=== PATIENT | male | born 1965 | race Caucasian/White ===

== ENCOUNTER 2023-04-07 19:15 | Outpatient (CLI) | payer BC, SELFPAY ==
--- NOTE | 2023-04-07 19:45 | MR_ITS ---
[facility] [address] [facility] [address] Phone:?[phone] Fax:?[phone] Referring Physician Information: William Veloz M.D. [address] [place] [address] Phone:?[phone] Fax:?[phone] Patient:Davina Levine D.O.B:?1965 Sex:?Male Phone:?[phone] [facility] MRN:?[id number] Exam Date:?04/07/2023 EXAM: MRI EXAMINATION OF THE RIGHT KNEE CLINICAL INFORMATION: Right knee pain. Injury. Evaluate ACL and medial meniscus tear. No history of surgery to this area. TECHNICAL INFORMATION: Coronal PD and STIR. Axial PD and T2 fat saturation. Sagittal and coronal PD and PD fat saturation images acquired. No prior studies for comparison. INTERPRETATION: Bones: There is a 5 mm subchondral fracture with minimal irregularity of the subchondral bone involving the weightbearing surface of the medial tibial plateau. Moderate to marked surrounding bone marrow edema signal. Marked osseous spurring off the posterior lateral aspect of the medial tibial plateau. No other abnormal bone marrow edema pattern is identified. Ligaments and tendons: The medial collateral ligament is intact, without acute sprain or tear. The iliotibial band, fibular collateral ligament, biceps femoris tendon and popliteus tendon all are intact. The anterior cruciate ligament is intact without acute sprain or tear. The posterior cruciate ligament is intact. Extensor Mechanism: The patellar and quadriceps tendons are intact. The medial and lateral retinacula are intact. Knee Joint: There is a moderately large knee joint effusion. There is a small popliteal cyst. Abnormal moderate to marked fluid and edema signal extending inferior from this cyst in keeping with cyst leakage. There is no discrete loose body seen within the joint. Medial Compartment: Series 6 images 19 and 20 as well as series 7 image 23 demonstrate a full-thickness radial tear involving the posterior horn medial meniscus situated 7 mm from the level of the posterior root insertion. Intrasubstance signal continues from this level into the body. No displaced flap fragment or parameniscal cyst. There is a rate IV appearance of chondromalacia along the central surface of the medial tibial plateau. Adjacent grade III chondromalacia involves the femoral condyle. Lateral Compartment: There is no evidence for discrete lateral meniscal tear. No displaced flap fragment or parameniscal cyst. There is a grade 2 appearance of chondromalacia involving the mid to posterior central weightbearing surface of the lateral femoral condyle. No other significant changes of chondromalacia. Patellofemoral articulation: There are grade 3-4 changes of chondromalacia along the central midline patella and directly adjacent portions of the medial and lateral facets. No other significant chondromalacia. CONCLUSION: 1. There is a full-thickness radial tear involving the far posterior horn medial meniscus, situated 7 mm from the posterior root insertion. 2. There is a small subchondral fracture with minimal irregularity of the subchondral bone involving the weightbearing surface of the medial tibial plateau. Moderate to marked bone marrow edema signal. 3. 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 4. No lateral meniscal tear. Grade II chondromalacia involves the and lateral femoral condyle. 5. Grade III to IV chondromalacia along the central patella. 6. There is a moderately large knee joint effusion. A small popliteal cyst demonstrates moderate to marked leakage. KES Electronically signed on 04/10/2023 1:11:00 PM by Isael Winters M.D.
== END 2023-04-07 19:16 | disposition home or self-care (01) ==
LOC: MRI 19:16
PROVIDERS: PCP Family Medicine; Visit Provider Orthopaedic Surgery
DX: M25.561 Pain in right knee (principal); S83.241A Other tear of medial meniscus, current injury, right knee, initial encounter; S83.511A Sprain of anterior cruciate ligament of right knee, initial encounter; M94.261 Chondromalacia, right knee; M22.41 Chondromalacia patellae, right knee; M25.461 Effusion, right knee
CPT/HCPCS: 73721

== ENCOUNTER 2023-06-03 06:59 | Day surgery (SDC) | payer BC, SELFPAY ==
[2023-06-03] VITALS (15 sets, daily range): BP systolic 97–130; BP diastolic 62–101; PULSE 49–66; RESP 12–16; TEMP 36.1–36.6; O2SAT 94–97; BMI 28.9
--- OUTSIDE RECORDS SUMMARY | 2023-06-03 07:01 | XMS_ITS | Clinical Summary ---
Author Name Unknown Organization [facility] Address [place], [place] [address] Care Team Providers Care Radial Router Operator Name Role Phone Jay Perez MD Primary Care Provider Allergies No known active allergies Medications Medication Sig Dispensed Refills Start Date End Date Status sildenafil citrate (VIAGRA) 100 mg tabletIndications :ED (erectile dysfunction) of non-organic origin Take 1 Tablet (100 mg) by mouth once daily if needed for Erectile Dysfunction. Take 30min to 4 hours before sexual activity. Max 100mg/24hr. 10 Tablet 11 05/18/2021 Active tadalafiL (Cialis) 20 mg tabletIndications :Incomplete bladder emptying Take 1 Tablet (20 mg) by mouth once daily. Take 30 minutes before sexual activity. 30 Tablet 1 12/13/2021 Active ibuprofen (ADVIL; MOTRIN) 600 mg tabletIndications :Medial knee pain, right Take 1 Tablet (600 mg) by mouth three times daily with meals. Maximum of 3200 mg in 24 hours. 90 Tablet 0 03/03/2023 Active polyethylene glycol-electrolyt e (GOLYTELY) 236-22.74-6.74 -5.86 gram suspensionIndicat ions:Screen for colon cancer Take 4,000 mL by mouth one time for 1 dose. 4000 mL 0 08/27/2023 08/27/2023 Active tamsulosin (Flomax) 0.4 mg capsuleIndication s:Incomplete bladder emptying Take 1 Capsule (0.4 mg) by mouth at bedtime. 90 Capsule 3 06/02/2023 Active tamsulosin (Flomax) 0.4 mg capsuleIndication s:Incomplete bladder emptying Take 1 Capsule (0.4 mg) by mouth at bedtime. 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 Elevated PSA 06/02/2023 Encounters Date Type Department Care Team Description 06/02/2023 1:40 PM MOUSE BREEDER Office Visit [address] [place] [address] Isaac Myles MD Consult (PSA) 06/02/2023 Travel 05/20/2023 10:10 AM MOUSE BREEDER Preop Visit [address] [place] [address] Jay Perez MD Pre-Op Exam (06/03/2023 right knee) 05/20/[address] [place] [address] Jay Peerz MD Results 05/20/2023 Orders Only [address] [place] [address] Jay Perez MD 1 scan: (1-Ord) 05/20/2023 05/20/2023 Travel 04/08/[address] [place] [address] Jay Perez MD Results 04/07/2023 9:50 AM MOUSE BREEDER Office Visit [address] [place] [address] Jay Perez MD Physical 04/07/2023 Orders Only [facility] Scanner 1 scan: (1-Ord) [place], KNEE RT WO CON, 04/07/2023 04/07/[address] [place] [address] Curto, MD Silvio Aranda 04/07/2023 Travel 03/03/2023 4:20 PM MOUSE BREEDER Office Visit [facility] [address] [place] [address] Flakita Bradford, Knee Pain/problem (right knee- yesterday) 03/03/2023 Travel from Last 3 Months Immunizations Name Administration Dates Next Due COVID-19 vaccine ([employer]-Bio NTech 30mcg/0.3mL) PFHERBIE 09/13/2020,08/23/2020 Influenza Virus, Unspecified 02/11/2011,05/30/19 07 Influenza, IIV3 (Age >=3 years) 04/22/2012,01/05,02/25/2008 Influenza, IIV4 02/16/2020 Tdap 02/16/2020,09/24/2005 Family History Relation Name Status Comments Son 1 Alive Son 2 Alive Social History Tobacco Use Types Packs/Day Years Used Date Smoking Tobacco: Never Smokeless Tobacco: Current Chew Tobacco Cessation:Counseling Given: Yes Alcohol Use Standard Drinks/Week Comments Yes 0 (1 standard drink = 0.6 oz pur e alcohol) PHQ-2 Answer Date Recorded PHQ-2 TOTAL SCORE 0 07/24/2021 Social Connections Answer Date Recorded Frequency of Communication with Friends and Fami ly Not on file 04/21/2021 Financial Resource Strain Answer Date R ecorded Difficulty of Paying Living Expenses Not on file 04/21/2021 Difficulty of Paying Living Expenses Not on file 04/21/2021 Sex and Gender Information Value Date Recorded Sex Assigned at Not on file Gender Identity Not on file Sexual Orientation Not on file Obstetrics History Last Filed Vital Signs Vital Sign Reading Time Taken Comments Blood Pressure 134/82 06/02/2023 1:44 PM MOUSE BREEDER Pulse 80 06/02/2023 1:44 PM MOUSE BREEDER Temperature 36.9 ??C (98.5 ??F) 05/20/2023 1 0:18 AM MOUSE BREEDER Respiratory Rate 14 08/06/2021 1:10 PM CDT Oxygen Saturation 98% 06/02/2023 1:44 PM MOUSE BREEDER Inhaled Oxygen Concentration - - Weight 95.6 kg (210 lb 11.2 oz) 06/02/2023 1:44 PM MOUSE BREEDER Height 182 cm (5' 11.65) 05/20/2023 10 :18 AM MOUSE BREEDER Body Mass Index 28.85 05/20/2023 10:18 AM MOUSE BREEDER Plan of Treatment Upcoming Encounters Date Type Department Care Team (Late st Contact Info) Description 09/17/2023 7:30 AM CDT Hospital Encounter [facility] [address] [place] [address] Getachew Sesay MD [address] [place] [address] 09/17/2023 7:30 AM CDT - 09/17/2023 8:20 AM CDT Surgery [facility] [address] [place] [address] Getachew Sesay MD [address] [place] [address] COLONOSCOPY Scheduled Procedures Name Priority Associated Diagnoses Date/Ti me COLONOSCOPY Screen for colon cancer 09/17/2023 7:30 AM CDT Health Maintenance Due Date Last Done Comments HIV for age 15-65 1980 Hepatitis C screening for age 18-79 09/10/1983 Colonoscopy through age 75 2010 Zoster (shingles) series for age 50+ (1 of 2) 09/10/2015 Depression screening for age 12+ 07/27/2022 07/27/2021, 07/24/2021, 07/02/2021, Additional history exists COVID-19 vaccine series ( season) 2022 09/13/2020, 08/23/2020 Influenza for age 50-64 12/20/2022 02/16/20 20, 04/22/2012, 02/11/2011, Additional history exists BMI (ht and wt on same day) for age 18+ 05/20/2024 05/20/2023, 04/07/2023, 07/24/2021, Additional history exists Lipids for age 45-75 04/07/2028 04/07/2023, 02/16/20 20 Tetanus booster 02/15/2030 02/16/2020, 09/24/2005 Tdap Completed 02/16/2020, 09/24/2005 Pneumococcal series for age 6-64 Aged Out No longer eligible based on patient's age to complete this topic Medical Devices Implanted Type Area Senior Finance Manager Device Identifier Shelf Expiration Date Model / Serial / Lot Mesh Inguinal Lt 3x5in 3-D Max - [id number] Implanted:Qty: 1 on 07/25/2021 by Clovis Goncalves DO at [facility] Left: Inguinal [employer] 01/17/2024 [id number] / / [id number] Procedures Procedure Name Priority Date/Time Associated Diagnosis Comments CBC WITH AUTO DIFFERENTIAL Routine 05/20/2023 10:55 AM MOUSE BREEDER Preop examination Chronic pain of right knee BASIC METABOLIC PANEL Routine 05/20/2023 10:55 AM MOUSE BREEDER Preop examination Chronic pain of right knee CBC WITH AUTO DIFFERENTIAL Routine 05/20/2023 10:55 AM MOUSE BREEDER Preop examination Chronic pain of right knee EKG 12 LEAD Routine 05/20/2023 12:00 AM MOUSE BREEDER Preop examination Chronic pain of right knee BASIC METABOLIC PANEL Routine 04/07/2023 10:30 AM MOUSE BREEDER Well adult exam HEMOGLOBIN A1C SCREENING Routine 04/07/2023 10:30 AM MOUSE BREEDER Well adult exam LIPID PANEL W REFLEX MEASURED LDL Routine 04/07/2023 10:30 AM MOUSE BREEDER Well adult exam PSA TOTAL SCREEN Routine 04/07/2023 10:3 0 AM MOUSE BREEDER Screening for prostate cancer SCAN-MRI INTERPRETATION 04/07/20 12:00 AM MOUSE BREEDER from Last 3 Months Results * CBC WITH AUTO DIFFERENTIAL (05/20/2023 10:55 AM MOUSE BREEDER) WHITE BLOOD COUNT 7.1 4.5 - 11.0 thou/cu mm 05/20/2023 11:15 AM MOUSE BREEDER [facility] RED BLOOD COUNT 5.62 4.30 - 5.90 mil/cu mm 05/20/2023 11:15 AM [facility] HEMOGLOBIN 16.4 13.5 - 17.5 g/dL 05/20/2023 11:15 AM [facility] HEMATOCRIT 48.8 37.0 - 53.0 % 05/20/2023 11:15 AM [facility] MCV 87 80 - 100 fL 05/20/2023 11:15 AM [facility] MCH 29.2 26.0 - 34.0 pg 05/20/2023 11:15 AM [facility] MCHC 33.6 32.0 - 36.0 g/dL 05/20/2023 11:15 AM [facility] RDW 14.2 11.5 - 15.5 % 05/20/2023 11:15 AM [facility] PLATELET COUNT 245 140 - 440 thou/cu mm 05/20/2023 11:15 AM [facility] MPV 9.1 6.5 - 11.0 fL 05/20/2023 11:15 AM [facility] % NEUT 61.8 % 05/20/2023 11:15 AM [facility] % LYMPH 27.7 % 05/20/2023 11:15 AM [facility] % MONO 8.7 % 05/20/2023 11:15 AM [facility] % EOS 1.4 % 05/20/2023 11:15 AM [facility] % BASO 0.4 % 05/20/2023 11:15 AM [facility] ABSOLUTE NEUTROPHILS 4.4 1.7 - 7.0 thou/cu mm 05/20/2023 11:15 AM [facility] ABSOLUTE LYMPHOCYTES 2.0 0.9 - 2.9 thou/cu mm 05/20/2023 11:15 AM [facility] ABSOLUTE MONOCYTES 0.6 <0.9 thou/cu mm 05/20/2023 11:15 AM [facility] ABSOLUTE EOSINOPHILS 0.1 <0.5 thou/cu mm 05/20/2023 11:15 AM [facility] ABSOLUTE BASOPHILS 0.0 <0.3 thou/cu mm 05/20/2023 11:15 AM [facility] Blood BLOOD SPECIMEN / Unknown Venipuncture / Unknown 05/20/2023 10:55 AM MOUSE BREEDER 05/20/2023 10:55 AM MOUSE BREEDER Jay Perez MD HEMATOLOGY [facility] [address] [place] [address] * (ABNORMAL) BASIC METABOLIC PANEL (05/20/2023 10:55 AM [facility]) Only the most recent of2 resultswithin the time period is included. SODIUM 137 136 - 145 mmol/L 05/20/2023 11:34 AM [facility] POTASSIUM 4.1 3.5 - 5.1 mmol/L 05/20/2023 11:34 AM [facility] CHLORIDE 101 98 - 107 mmol/L 05/20/2023 11:34 AM [facility] CO2,TOTAL 28 22 - 29 mmol/L 05/20/2023 11:34 AM [facility] ANION GAP 8 5 - 18 05/20/2023 11:34 AM [facility] GLUCOSE 96 70 - 99 mg/dL 05/20/2023 11:34 AM [facility] CALCIUM 9.8 8.6 - 10.0 mg/dL 05/20/2023 11:34 AM [facility] BUN 15 6 - 20 mg/dL 05/20/2023 11:34 AM [facility] CREATININE 0.98 0.70 - 1.20 mg/dL 05/20/2023 11:34 AM [facility] BUN/CREAT RATIO 15 10 - 20 11:34 AM [facility] eGFR 90(L) >90 mL/min/1.7 3m2 05/20/2023 11:34 AM [facility] Comment:As of 2021, eG FR is calculated by the CKD-EPI creatinine equation without race adjustment. ??eGFR can be influenced by muscle mass, exercise, and diet. ??The reported eGFR is an estimation only and is only applicable if the renal function is stable. Blood BLOOD SPECIMEN / Unknown Venipuncture / Unknown 05/20/2023 10:55 AM MOUSE BREEDER 05/20/2023 10:55 AM MOUSE BREEDER Jay Perez MD CHEMISTRY Performing Organization Address [facility] Co de Phone Number [facility] [address] [place] [address] * EKG 12 LEAD (05/20/2023 12:00 AM MOUSE BREEDER) Jay Perez MD EKG ORD * HEMOGLOBIN A1C SCREENING (04/07/2023 10:30 AM MOUSE BREEDER) HEMOGLOBIN A1C SCREENING 5.7 <=6.4 % 04/07/2023 10:46 AM MOUSE BREEDER [facility] Blood BLOOD SPECIMEN / Unknown Venipuncture / Unknown 04/07/2023 10:30 AM MOUSE BREEDER 04/07/2023 10:33 AM MOUSE BREEDER Narrative [facility] - 04/07/2023 10:46 AM MOUSE BREEDER ? (<5.7%) ?Normal ? (5.7% to 6.4%) ? Indicates prediabetes ? (>=6.5%) ? Confirms diabetes Falsely low levels may be seen with: Recent Transfusion, Recent Significant Blood Loss, Hemolytic Diseases, or Falsely elevated levels may be seen with: Untreated Anemias, Splenectomy Jay Perez MD CHEMISTRY Performing Organization Address [facility] Co de Phone Number [facility] [address] [place] [address] * (ABNORMAL) LIPID PANEL W REFLEX MEASURED LDL (04/07/2023 10:30 AM MOUSE BREEDER) CHOLESTEROL,TOTAL 215(H) 100 - 199 mg/dL 04/07/2023 11:15 AM [facility] Comment: Cholesterol, Total Reference Ranges Desirable <200 mg/dL Borderline 200-239 mg/dL High >=240 mg/dL TRIGLYCERIDES 236(H) <150 mg/dL 04/07/2023 11:15 AM [facility] HDL CHOLESTEROL 42 >40 mg/dL 11:15 AM [facility] NON-HDL CHOLESTEROL 173(H) <145 mg/dl 04/07/2023 11:15 AM [facility] CHOL/HDL RATIO 5.12(H) <4.50 04/07/2023 11:15 AM [facility] LDL CHOLESTEROL 126 <=130 mg/dL 04/07/2023 11:15 AM [facility] VLDL CHOLESTEROL 47(H) <=30 mg/dL 04/07/2023 11:15 AM [facility] PROVIDER ORDERED STATUS RANDOM 04/07/2023 11:15 AM [facility] Blood BLOOD SPECIMEN / Unknown Venipuncture / Unknown 04/07/2023 10:30 AM MOUSE BREEDER 04/07/2023 10:33 AM MOUSE BREEDER Jay Perez MD CHEMISTRY [facility] [address] [place] [address] * (ABNORMAL) PSA TOTAL SCREEN (04/07/2023 10:30 AM MOUSE BREEDER) PSA TOTAL (SCREEN) 4.21(H) <4.00 ng/mL 04/07/2023 10:32 PM [facility] Blood BLOOD SPECIMEN / Unknown Venipuncture / Unknown 04/07/2023 10:30 AM MOUSE BREEDER 04/07/2023 10:33 AM MOUSE BREEDER Narrative [facility] - 04/07/2023 10:32 PM MOUSE BREEDER The test method changed on 10/15/2022. If this test has been used for serial monitoring, rebaselining is recommended. Rebaselining consists of 2 measurements, collected 3-6 weeks apart. The [employer] Ele[employer]ys total PSA assay is an electrochemiluminescence immunoassay ECLIA performed on the Bonif[employer] Catrina e immunoassay analyzers. Values obtained with different assay methods may be different and cannot be used interchangeably. Jay Perez MD [facility] [address] [place] [address], [place] * SCAN-MRI INTERPRETATION (04/07/2023 12:00 AM MOUSE BREEDER) Anatomical Region Laterality Modality Other Scanner OTHER from Last 3 Months Advance Directives Latest Code Status on File Code Status Date Activated Date Inactivated Comments Full Code 07/25/2021 7:32 AM 07/25/2021 2:05 PM Question Answer Comments Code Status Discussion: Reviewed Preferences Care Teams Radial Router Operator Relationship Specialty Start Date End Date Jay Perez MD [address] [address] PCP - General Family Practice 02/16/20
[2023-06-03] MEDS: LACTATED RINGERS 1000 ML 1,000 ML 100 ML IV (08:15)
[2023-06-03] MEDS: SODIUM CHLORIDE 0.9 % (FLUSH) 10 ML SYRINGE IVF (08:16)
[2023-06-03] MEDS: CEFAZOLIN 2 GM INJ IVP (09:13)
--- NOTE | 2023-06-03 10:18 | P.ORPRC_ITS ---
Procedure Note Date of procedure: 06/03/23 Procedure: PREOPERATIVE DIAGNOSIS: Right knee medial meniscus root tear, lateral meniscus tear POSTOPERATIVE DIAGNOSIS: Right knee medial meniscus root tear, lateral meniscus tear NAME OF OPERATION: Right knee arthroscopic medial meniscus root repair, partial lateral meniscectomy, microfracture of the notch SURGEON: William Veloz MD SALES MANAGEMENT INTERN: Amber Viera ANESTHESIA: Spinal ESTIMATED BLOOD LOSS: 0 mL COMPLICATIONS: None SPECIMENS: None DRAINS: None PREOPERATIVE ANTIBIOTICS: Ancef 2 gram INDICATIONS: The patient is a 57-year-old male with a history of right knee medial pain. MRI scan is consistent with a medial meniscus root tear. Despite appropriate nonoperative management, including activity modification, antiinflammatories, [id number] pain medication, bracing, physical therapy, and injections they continue to have pain and disability. Operative intervention was offered. The risks, benefits and expected outcomes were discussed in detail. These included but were not limited to: Infection, bleeding, injury to blood vessel or nerve, venous thromboembolism. All questions were answered to their satisfaction. PROCEDURE: Spinal anesthesia was administered. The patient was placed supine o n the operating room table. The right lower extremity was prepped and draped in the usual sterile fashion. The limb was exsanguinated with the Brendan bandage. The pneumatic tourniquet was inflated to 300 mmHg. A standard anterolateral portal was established. The arthroscope was introduced. The working portal was established anteromedially. Diagnostic arthroscopy was performed with findings as follows: The suprapatellar pouch is normal. Articular surface on the patella shows diffuse grade 3 change. Articular surface on the trochlea is normal. The medial gutter is normal. The medial compartment shows diffuse grade 2/3 change on both sides of the joint. The medial meniscus has a radial tear from the leading edge to the capsule, just off the posterior tibial attachment, detaching it from the tibia. The notch shows the ACL to be intact. The lateral compartment shows normal articular cartilage on the lateral femoral condyle and lateral tibial plateau. The lateral meniscus has some degenerative fraying of the leading edge at the junction of the midbody and anterior horn. The lateral gutter is normal. The scar at the tear of the posterior horn of the medial meniscus was debrided with the shaver. This nicely mobilizes the posterior horn and allows us to reduce it to its anatomic footprint. The knee scorpion was used to pass a fiber link x 2 in the posterior horn of the medial meniscus. The tibial drill guide was used over the footprint of the root. A longitudinal incision over the anteromedial face of the tibia was placed. The flip cutter was drilled into the footprint. The flip cutter was flipped and back cut 10 mm. It was removed and exchanged for a fiber stick. The fiber stick was brought out the anteromedial portal and was used to shuttle both of the fiber link luggage tag sutures on the posterior horn out the anteromedial tibia. We then tensioned the sutures and fixed them to the tibia with a SwiveLock anchor. This provided an excellent repair of the posterior tibial attachment of the medial meniscus to its anatomic footprint. The shaver was used to debride the leading edge of the lateral meniscus to a stable base. The power pick was used to microfracture the notch both medially and laterally. Arthroscopic instruments were removed, the portal sites were Steri-Stripped closed, the incision over the tibia was closed with 3-0 Vicryl and 4-0 Monocryl. A dry dressing was applied, the tourniquet was released. Sponge and needle counts were correct x 2. The patient tolerated the procedure well. There were no apparent complications. They were carefully transferred to the hospital bed and taken to the postanesthesia care unit in satisfactory condition. PLAN: The patient will be discharged to home. They will be strict nonweig htbearing on the lower extremity for 6 weeks postoperatively. Range of motion will be allowed from 0-90 degrees x 2 weeks then unrestricted range of motion. They will follow up in 2 weeks for a wound check.
--- NOTE | 2023-06-03 10:32 | W.ANESCHARGE ---
Anesthesia Charges Start Date/Time Anesthesia Start Date: 06/03/23 Anesthesia Start Time: 09:00 Stop Date/Time Anesthesia Stop Date: 06/10/23 Anesthesia Stop Time: 10:35
--- NOTE | 2023-06-03 10:40 | P.NB_ITS ---
Nerve Block Nerve Block Time Seen by Provider: 10:20 Date Seen: 06/03/23 Type of block requested by surgeon for post-operative analgesia: geniculars Side: right Time out performed: Yes Verification of patient name: Yes Verification of date of : Yes Name of person performing procedure: JORGITO Willis Continuous monitoring Was continuous monitoring of O2 sat, B/P, director of cardiac cath lab, recorded every 15 minutes?: Yes Procedure Checklist: sterile prep, needles and gloves Ultrasound guided. Images saved: No Medications given in 5ml increments after negative aspiration: Ropivicaine %: 0.5 mL: 12 Needle gauge: 24 Patient tolerated procedure well: Yes Block Charges Block Charge (with Pro Fee): Genicular Nerve Block Use of Ultrasound Machine for Block: No
[2023-06-03] MEDS: LACTATED RINGERS 1000 ML 1,000 ML 35 ML IV (10:50)
--- NOTE | 2023-06-03 10:58 | W.ANESCHARGE ---
Anesthesia Charges Start Date/Time Anesthesia Start Date: 06/03/23 Anesthesia Start Time: 09:00 Stop Date/Time Anesthesia Stop Date: 06/10/23 Anesthesia Stop Time: 10:35
[2023-06-03] MEDS: OxyCODONE/APAP 5-325 TABLET PO (12:40)
--- NOTE | 2023-06-03 12:41 | REH.PT ---
Seen at request of [facility] Nurse. Pt has crutches for home use and was instructed on how to adjust them. Instructed pt in gt level surfaces with 2 crutches, basic transfers and verbally instructed in stairs sequence and car transfers. Goals of PT were met. DC. No Charge.
--- NOTE | 2023-06-03 12:55 | SUR.PHASEII ---
1230: PT here to review crutch training and instructions. Reviewed DC instructions with pt and . All questions answered. Pt reported pain in knee, 1 Percocet tab given. Pt tolerated toast and pop. Pt declined wanting to use the bathroom. Instructed pt and to have pt try every 2 hours to urinate. If he can't go and is experiencing pain, to go to ER. Pt and verbalized understanding.
== END 2023-06-03 13:00 | disposition home or self-care (01) ==
PROVIDERS: PCP Family Medicine; Visit Provider Orthopaedic Surgery
PROC: (CPT 29882; principal; 2023-06-03 08:45)
DX: M23.241 Derangement of anterior horn of lateral meniscus due to old tear or injury, right knee (principal); M23.221 Derangement of posterior horn of medial meniscus due to old tear or injury, right knee; G89.18 Other acute postprocedural pain
CPT/HCPCS: 29881; 29882; 29879; 01400; 64454; A9270; C1713; J0690; J1100; J2250; J2405; J2704; J2795; J3010; J7120

== ENCOUNTER 2023-06-12 09:43 | Emergency (ER) | payer BC, SELFPAY ==
[2023-06-12 09:50] VITALS: BP 147/98; PULSE 74; RESP 14; TEMP 36.6; O2SAT 98; BMI 27.8
--- NOTE | 2023-06-12 09:53 | ED.GENADULT ---
HPI - General Adult General Time Seen by Provider: 09:53 Date Seen: 06/12/23 Chief complaint: Lower Extremity Swelling Stated complaint: Blood clot R leg Time Seen by Provider: 06/12/23 09:52 Source: patient, RN notes reviewed and old records reviewed Mode of arrival: ambulatory Limitations: no limitations History of Present Illness HPI narrative: 57-year-old male who comes in today with concern for right calf pain and found to have extensive DVT of the right leg by ultrasound done as an outpatient. Review of prior operative note from June 03 shows patient underwent arthroscopic repair of medial meniscus root, partial lateral meniscectomy at that time. Patient notes that he has had some swelling of the right calf going back to end of March when he was initially seen for his knee injury, after [place] it was little bit worse and he says at that time he measured his calf and noted about a 2 inch difference in circumference. Patient denies chest pain, shortness of breath, dyspnea on exertion. Related Data Home Medications Medication Instructions Recorded Confirmed ibuprofen 600 mg tablet 600 mg PO 3XD 04/02/23 06/11/23 tamsulosin 0.4 mg capsule 0.4 mg PO QPM 04/02/23 06/11/23 sildenafil 100 mg tablet (Viagra) 100 mg PO DAILY PRN 05/30/23 06/11/23 tadalafil 20 mg tablet (Cialis) 20 mg PO DAILY PRN 05/30/23 06/11/23 Previous Rx's Medication Instructions Recorded apixaban 5 mg (74 tabs) tablets in See Rx Instructions PO .COMPLEX 06/12/23 a dose pack (Eliquis DVT-PE Treat #74 ea 30D Start) rivaroxaban 15 mg (42)-20 mg (9) See Rx Instructions PO .COMPLEX 06/12/23 tablets in a starter pack #51 ea Allergies Allergy/AdvReac Type Severity Reaction Status Date / Time No Known Drug Allergies Allergy Verified 06/11/23 12:56 [facility] Medical History (Updated 06/12/23 @ 10:15 by Miguel Bolanos MD) Enlarged prostate ?N40.0 - Benign prostatic hyperplasia without lower urinary tract symptoms (ICD-10) Tear of meniscus of left knee ?S83.207A - Unspecified tear of unspecified meniscus, current injury, left knee, initial encounter (ICD-10) Surgical History (Updated 06/11/23 @ 13:45 by Jojo Mo PA-C) History of arthroscopy of right knee (06/03/23) ?Z98.890 - Other specified postprocedural states (ICD-10) H/O lateral meniscus repair of left knee (~2005) ?Z98.890 - Other specified postprocedural states (ICD-10) Exam Narrative: Exam Narrative: General: well nourished , NAD Head: Atraumatic and normocephalic ENT: External ears and external nose are normal Eyes: Conjunctiva clear, pupils are equal reactive, external ocular motions are intact Neck: Full spontaneous range of motion of the neck Lungs: No respiratory distress Musculoskeletal: Right knee arthroscopic incisions clean dry and intact, small knee effusion. Swelling and edema of the right lower leg and ankle with some tenderness of the calf but compartments are soft. Neurologic: No gross focal neurologic deficits Skin: No rashes Psych: Mood and affect are appropriate Const: Vital Signs, click to edit/add: Vital Signs - 24 hr 06/12/23 09:50 Temperature 97.9 F Pulse Rate [Pulse Oximeter] 74 Respiratory Rate 14 Blood Pressure [Ri ght Upper Arm] 147/98 H Pulse Oximetry 98 Oxygen Delivery Me thod Room Air Course Course ED Course: Patient seen examined, prior records are reviewed. Patient presents today with calf swelling after having knee arthroscopy 9 days ago, found to have DVT of the right proximal femoral vein distally through the peroneal and posterior tibial veins. On exam here, patient denies chest pain or shortness of breath. But no tachycardia, no hypoxia, likelihood of clinically significant pulmonary embolism is low based on exam and history. Basic panel is ordered to evaluate for kidney function and will plan to start patient on anticoagulation. Reevaluation(s) Time of Reevaluation #1: 10:53 Reevaluation #1: Labs ordered independently interpreted by being with normal basic metabolic panel. Patient is stable for discharge with outpatient follow-up. Vital Signs Vital signs: Initial Vital Signs Temperature 97.9 F 06/12/23 09:50 Temperature Source Temporal Artery Scan 06/12/23 09:50 Pulse Rate 74 06/12/23 09:50 Pulse Rhythm Regular 06/12/23 09:50 Respiratory Rate 14 06/12/23 09:50 Blood Pressure 147/98 H 06/12/23 09:50 Blood Pressure Mean 114 H 06/12/23 09:50 Blood Pressure Position Supine 06/12/23 09:50 Pulse Oximetry 98 06/12/23 09:50 Oxygen Delivery Method Room Air 06/12/23 09:50 Vital Signs Temperature 97.9 F 06/12/23 09:50 Pulse Rate 74 06/12/23 09:50 Respiratory Rate 14 06/12/23 09:50 Blood Pressure 147/98 H 06/12/23 09:50 Pulse Oximetry 98 06/12/23 09:50 Oxygen Delivery Method Room Air 06/12/23 09:50 Temperature 97.9 F 06/12/23 09:50 Pulse Rate 74 06/12/23 09:50 Respiratory Rate 14 06/12/23 09:50 Blood Pressure 147/98 H 06/12/23 09:50 Pulse Oximetry 98 06/12/23 09:50 Oxygen Delivery Method Room Air 06/12/23 09:50 Medical Decision Making Lab Data Labs: Lab Results 06/12/23 Range/Units 10:21 Sodium 136 (135-149) mmol/L Potassium 4.1 (3.6-5.1) mmol/L Chloride 100 (96-114) mmol/L Carbon Dioxide 27 (20-32) mmol/L Anion Gap 9 (7-15) mEq/L BUN 21 (7-30) mg/dL Creatinine 0.8 (0.5-1.5) mg/dL Estimated Creat Clear 111.82 Estimated GFR 103 ml/min Glucose 102 (60-115) mg/dL Calcium 9.8 (8.4-10.6) mg/dL Discharge Plan Discharge Clinical Impression: Acute deep vein thrombosis (DVT) of right lower extremity Patient Disposition: Home, Self-Care Condition: Stable Instructions: Deep Vein Thrombosis (DC), Blood Thinners (ED) Additional Instructions: Date prescriptions for Xarelto and Eliquis to the pharmacy. Start whichever is more affordable or covered by your insurance Activity Level: Activity as Tolerated Discharge Diet: Regular Prescriptions: New rivaroxaban 15 mg (42)- 20 mg (9) tablets,dose pack See Rx Instructions .ROUTE .COMPLEX Qty: 51 0RF Rx Instructions: take one-15 mg tablet twice daily for 21 days, then one-20 mg tablet once daily; must take with meal/food Eliquis DVT-PE Treat 30D Start 5 mg (74 tabs) tablets,dose pack See Rx Instructions .ROUTE .COMPLEX Qty: 74 0RF Rx Instructions: orally per package directions No Action tamsulosin 0.4 mg capsule 0.4 mg PO QPM ibuprofen 600 mg tablet 600 mg PO 3XD sildenafil [Viagra] 100 mg tablet 100 mg PO DAILY PRN Rx Instructions: administer 30 minutes to 4 hours before activity tadalafil [Cialis] 20 mg tablet 20 mg PO DAILY PRN Rx Instructions: administer approximately 30min before sexual activity; do not use more than 1 dose per 24hrs Follow Up/Referrals: Jay Perez MD [Primary Care Provider] - Stand Alone Forms: [employer] Info Instructions
[2023-06-12 10:41] LABS: Chloride* 100 mmol/L (96-114)
[2023-06-12 10:42] LABS: Potassium* 4.1 mmol/L (3.6-5.1); Sodium* 136 mmol/L (135-149)
[2023-06-12 10:44] LABS: Creatinine* 0.8 mg/dL (0.5-1.5); Est. Creatinine Clearance* 111.82; Estimated Glomerular Filt Rate 103 ml/min
[2023-06-12 10:45] LABS: Anion Gap 9 mEq/L (7-15); Blood Urea Nitrogen* 21 mg/dL (7-30); Calcium* 9.8 mg/dL (8.4-10.6); Carbon Dioxide* 27 mmol/L (20-32); Glucose* 102 mg/dL (60-115)
[2023-06-12 11:31] VITALS: BP 147/98; PULSE 74; RESP 14; TEMP 36.6
== END 2023-06-12 11:34 | disposition home or self-care (01) ==
LOC: ED 10:24
PROVIDERS: Emergency Provider Family Medicine; PCP Family Medicine
DX: I82.401 Acute embolism and thrombosis of unspecified deep veins of right lower extremity (principal)
CPT/HCPCS: 36415; 80048; 93971; 99284

== ENCOUNTER 2024-01-08 09:58 | Outpatient (CLI) | payer BC, SELFPAY ==
--- OUTSIDE RECORDS SUMMARY | 2024-01-08 10:00 | XMS_ITS | Clinical Summary ---
Author Organization [facility] Address [place], [place] [address] Care Team Providers Care Unit Manager [employer] Name Role Phone Jay Perez MD Primary Care Provider Allergies No known active allergies Medications Medication Sig Dispensed Refills Start Date End Date Status ibuprofen (ADVIL; MOTRIN) 600 mg tabletIndications:M edial knee pain, right Take 1 Tablet (600 mg) by mouth three times daily with meals. Maximum of 3200 mg in 24 hours. 90 Tablet 03/03/2023 Active tamsulosin (Flomax) 0.4 mg capsuleIndications: Incomplete bladder emptying Take 1 Capsule (0.4 mg) by mouth at bedtime. 90 Capsule 3 06/02/2023 Active hydrocortisone 2.5% creamIndications:He morrhoids, external Apply topically to affected area(s) two times daily. 30 g 1 09/25/2023 Active LORazepam (ATIVAN) 1 mg tabletIndications:C laustrophobia Take 1 Tablet (1 mg) by mouth one time for 1 dose. 1 Tablet 12/07/2023 Active Active Problems Problem Noted Date Diagnosed Date Encounter for screening colonoscopy 09/17/2023 BPH with obstruction/lower urinary tract symptom s 06/02/2023 Elevated PSA 06/02/2023 Encounters Date Type Department Care Team Description 12/23/2023 Telephone [facility] [address] [place] [phone] Isaac Myles MD Error-please disregard (error) 12/17/[address] [place] [address] Isaac Myles MD Referral (MR PELVIS PROSTATE WWO [[id number]]/) 12/05/[address] [place] [address] Jay Perez MD Need Meds 12/05/[address] [place] [address] Jay Perez MD Referral 12/04/[address] [place] [address] Isaac Myles MD Questions 12/04/[address] [place] [address] Isaac Myles MD Results 12/01/2023 1:00 PM CDT Office Visit [address] [place] [address] Isaac Myles MD Follow Up (6 month check ) 12/01/2023 Travel 11/26/[address] [place] [address] Isaac Myles MD Lab from Last 3 Months Immunizations Name Administration Dates Next Due COVID-19 vaccine (StarShooter NTSekoia 30mcg/0.3mL) PFMDV 09/13/2020,08/23/2020 Influenza Virus, Unspecified 02/11/2011,05/30/19 07 Influenza, IIV3 (Age >=3 years) 04/22/2012,01/05,02/25/2008 Influenza, IIV4 02/16/2020 Tdap 02/16/2020,09/24/2005 Family History Relation Name Status Comments Son 1 Alive Son 2 Alive Social History Tobacco Use Types Packs/Day Years Used Date Smoking Tobacco: Never Smokeless Tobacco: Current Chew Tobacco Cessation:Ready to Q uit: No; Counseling Given: Yes Alcohol Use Standard Drinks/Week Comments Yes 0 (1 standard drink = 0.6 oz pur e alcohol) occasionally PHQ-2 Answer Date Recorded PHQ-2 TOTAL SCORE 0 07/24/2021 Social Connections Answer Date Recorded Frequency of Communication with Friends and Fami ly 0 09/25/2023 Financial Resource Strain Answer Date R ecorded Difficulty of Paying Living Expenses 3 09/25/2023 Difficulty of Paying Living Expenses Not on file 09/25/2023 Food Insecurity Answer Date Recorded Worried About Running Out of Food in the Last Ye ar 1 09/25/2023 Transportation Needs Answer Date Record ed Lack of Transportation (Medical) 1 09/25/2023 Housing Stability Answer Date Recorded Unable to Pay for Housing in the Last Year 1 09/25/2023 Sex and Gender Information Value Date Recorded Sex Assigned at Not on file Gender Identity Not on file Sexual Orientation Not on file Obstetrics History Last Filed Vital Signs Vital Sign Reading Time Taken Comments Blood Pressure 128/80 12/01/2023 1:02 PM CDT Pulse 72 12/01/2023 1:02 PM CDT Temperature 36.7 ??C (98 ??F) 09/17/2023 7:10 AM CDT Respiratory Rate 16 09/17/2023 8:45 AM CDT Oxygen Saturation 97% 09/25/2023 9:51 AM CDT Inhaled Oxygen Concentration - - Weight 92.1 kg (203 lb) 12/01/2023 1:02 PM CDT Height 178 cm (5' 10.08) 09/25/2023 9:51 AM CDT Body Mass Index 29.06 09/25/2023 9:51 AM CDT Plan of Treatment Health Maintenance Due Date Last Done Comments HIV for age 15-65 1980 Hepatitis C screening for age 18-79 09/10/1983 Zoster (shingles) series for age 50+ (1 of 2) 09/10/2015 Depression screening for age 12+ 07/27/2022 07/27/2021, 07/24/2021, 07/02/2021, Additional history exists COVID-19 vaccine series ( season) 2023 09/13/2020, 08/23/2020 Influenza for age 50-64 12/21/2023 02/16/20 20, 04/22/2012, 02/11/2011, Additional history exists BMI (ht and wt on same day) for age 18+ 09/24/2024 09/25/2023, 07/08/2023, 05/20/2023, Additional history exists Lipids for age 45-75 04/07/2028 04/07/2023, 02/16/20 20 Tetanus booster 02/15/2030 02/16/2020, 09/24/2005 Colonoscopy through age 75 09/16/2030 09/17/2023 Tdap Completed 02/16/2020, 09/24/2005 Pneumococcal series for age 6-64 Aged Out No longer eligible based on patient's age to complete this topic Medical Devices Implanted Type Area Carbon Blocks Press Operator Device Identifier Shelf Expiration Date Model / Serial / Lot Mesh Inguinal Lt 3x5in 3-D Max - [id number] Implanted:Qty: 1 on 07/25/2021 by Clovis Goncalves DO at [facility] Left: Inguinal [employer] 01/17/2024 [id number] / / [id number] Procedures Procedure Name Priority Date/Time Associated Diagnosis Comments PSA TOTAL (DIAGNOSTIC) Routine 12/01/2023 1:36 PM CDT Elevated PSA COLONOSCOPY 09/17/2023 7:16 AM CDT LIPID PANEL W REFLEX MEASURED LDL Routine 04/07/2023 10:30 AM ALL PURPOSE CLERK Well adult exam from Last 3 Months or Most Recently Relevant to Health Maintenance Results * (ABNORMAL) PSA TOTAL (DIAGNOSTIC) (12/01/2023 1:36 PM CDT) PSA TOTAL (DIAGNOSTIC) 4.72(H) <4.00 ng/mL 12/02/2023 12:44 PM CDT [facility] Blood BLOOD SPECIMEN / Unknown Venipuncture / Unknown 12/01/2023 1:36 PM CDT 12/01/2023 1:36 PM CDT [facility] - 12/02/2023 12:44 PM CDT The test method changed on 10/15/2022. If this test has been used for serial monitoring, rebaselining is recommended. Rebaselining consists of 2 measurements, collected 3-6 weeks apart. The [employer] Elecsys total PSA assay is an electrochemiluminescence immunoassay ECLIA performed on the [employer] Catrina e immunoassay analyzers. Values obtained with different assay methods may be different and cannot be used interchangeably. Isaac Myles MD [facility] [address] [place] [address], * COLONOSCOPY (09/17/2023 7:16 AM CDT) 09/17/2023 7:16 AM CDT Narrative Transcriptions Getachew Sesay MD - 09/17/2023 8:18 AM CDT Patient Name: Love Levine Procedure Date: 09/17/2023 Gender: Male Date of : 1965 Admit Type: Ambulatory Procedure: Colonoscopy Proceduralist: Getachew Sesay MD [facility] Referring MD: Jay Perez Indications/Pre-Op Diagnosis: Screening for colorectal malignantneoplasm Medications: Propofol per Anesthesia Procedure Description: The patient had risks, benefits and alternatives explained to andgave informed consent. The patient had a stable cardiopulmonary status and judged an adequate candidate for conscious sedation. The endoscope -[id number] was passed through the anus and advanced to the cecum, identified by appendiceal orifice andileocecal valve. The colonoscopy was performed without difficulty. The patient tolerated the procedure well. The quality of the bowel preparationwas good. The ileocecal valve, appendiceal orifice, and rectum were photographed. Complications: No immediate complications. Estimated Blood Loss & Specimen: Estimated blood loss: none. Findings: The perianal and digital rectal examinations were normal. A 2 mm polyp was found in the transverse colon. The polyp wassessile. The polyp was removed with a cold biopsy forceps. Resection and retrieval were complete. Verification of patient identification forthe specimen was done. Estimated blood loss was minimal. A localized area of mildly erythematous mucosa was found in thedistal rectum. Biopsies were taken with a cold forceps for histology. Verification of patient identification for the specimen was done. Estimated blood loss was minimal. The exam was otherwise without abnormality. Impressions/Post-Op Diagnosis: - One 2 mm polyp in the transverse colon, removed with a cold biopsy forceps. Resected and retrieved. - Erythematous mucosa in the distal rectum. Biopsied. - The examination was otherwise normal. Recommendation: - Discharge patient to home. - Resume previous diet. - Continue present medications. - Await pathology results. - Repeat colonoscopy in 7-10 years for surveillance. Getachew Sesay MD 09/17/2023 8:18:00 AM Note Initiated On: 09/17/2023 7:16 AM Getachew Sesay MD PROCEDURE ORD * (ABNORMAL) LIPID PANEL W REFLEX MEASURED LDL (04/07/2023 10:30 AM ALL PURPOSE CLERK) CHOLESTEROL,TOTAL 215(H) 100 - 199 mg/dL 04/07/2023 11:15 AM [facility] Comment: Cholesterol, Total Reference Ranges Desirable <200 mg/dL Borderline 200-239 mg/dL High >=240 mg/dL TRIGLYCERIDES 236(H) <150 mg/dL 04/07/2023 11:15 AM [facility] HDL CHOLESTEROL 42 >40 mg/dL 11:15 AM ALL PURPOSE CLERK [facility] NON-HDL CHOLESTEROL 173(H) <145 mg/dl 04/07/2023 11:15 AM [facility] CHOL/HDL RATIO 5.12(H) <4.50 04/07/2023 11:15 AM [facility] LDL CHOLESTEROL 126 <=130 mg/dL 04/07/2023 11:15 AM [facility] VLDL CHOLESTEROL 47(H) <=30 mg/dL 04/07/2023 11:15 AM [facility] PROVIDER ORDERED STATUS RANDOM 04/07/2023 11:15 AM [facility] Blood BLOOD SPECIMEN / Unknown Venipuncture / Unknown 04/07/2023 10:30 AM ALL PURPOSE CLERK 04/07/2023 10:33 AM ALL PURPOSE CLERK Jay Perez MD CHEMISTR[facility] [address] [place] [address] from Last 3 Months or Most Recently Relevant to Health Maintenance Advance Directives * Full Code (Latest Code Status on File) Date Activated Date Inactivated Comments 09/17/2023 6:46 AM 09/17/2023 11:08 AM Question Answer Comments Code Status Discussion: Unable to Assess Preferences, Provider to review later * Full Code Date Activated Date Inactivated Comments 07/25/2021 7:32 AM 07/25/2021 2:05 PM Question Answer Comments Code Status Discussion: Reviewed Preferences Care Teams Unit Manager [employer] Relationship Specialty Start Date End Date Jay Perez MD [address] [facility] [place] [address] PCP - General Family Practice 02/16/20
--- NOTE | 2024-01-08 10:15 | MR_ITS ---
[address] [address] Phone:?[phone] Fax:?[phone] Referring Physician Information: Isaac Myles M.D. [address] [place] [address] Phone:?[phone] Fax:?[phone] Patient:Davina Levine D.O.B:?1965 Sex:?Male Phone:?[phone] [facility] MRN:?[id number] Exam Date:?01/08/2024 EXAM: MR PELVIS WITHOUT AND WITH CONTRAST CLINICAL INFORMATION: Elevated PSA. COMPARISON: None. TECHNICAL INFORMATION: Examination was performed on a 1.5T magnet. High- resolution T1 axial, T2 axial, T2 FSE sagittal and T2 FSE coronal images were obtained through the prostate gland and seminal vesicles. Diffusion images were obtained in the axial plane. 18 mL of Dotarem were injected with dynamic enhanced images of the prostate gland in the axial plane. T1 fat saturation sagittal and coronal images were obtained postinjection. Images were analyzed with 3-D postprocessing online under concurrent physician supervision using a separate [employer] workstation. INTERPRETATION: The prostate gland measures 4.3 x 4.2 x 4.6 cm (TV x AP x SI) for an estimated volume of 38 cc. Transitional and central zones: There is mild glandular and stromal hyperplasia with well encapsulated BPH nodules (PI-RADS 2). No focal CZ/TZ lesions concerning for clinically significant adenocarcinoma. Peripheral zones: No focal PZ lesions concerning for clinically significant adenocarcinoma (PI-RADS 1). Pelvis: No ninoska transcapsular disease. Neurovascular bundles and seminal vesicles appear intact. No pelvic lymphadenopathy or evident bone marrow disease. CONCLUSION: Mild prostatomegaly with stigmata of BPH. No suspicious (PI-RADS 3, 4, or 5) lesions identified. No ninoska transcapsular, ita, or skeletal disease in the pelvis. PI-RADS Assessment Categories: Score 1 = very low; clinically significant disease highly unlikely Score 2 = low; clinically significant disease is unlikely Score 3 = intermediate; clinically significant disease is equivocal Score 4 = high; clinically significant disease is likely Score 5 = very high; clinically significant disease is highly likely Electronically signed on 01/12/2024 12:24:00 PM by Roberto Carlos Davenport M.D.
== END 2024-01-08 09:59 | disposition home or self-care (01) ==
LOC: MRI 09:59
PROVIDERS: PCP Family Medicine; Visit Provider Urology
DX: R97.20 Elevated prostate specific antigen [PSA] (principal); N40.0 Benign prostatic hyperplasia without lower urinary tract symptoms
CPT/HCPCS: 72197; A9575